=== PATIENT | female | born 1985 | race Caucasian/White ===

== ENCOUNTER 2022-10-12 15:51 | Outpatient (CLI) | payer OTHER, SELFPAY ==
[2022-10-12 16:55] LABS: SARS-CoV-2 RNA PCR Positive (Negative)
== END 2022-10-12 15:52 | disposition home or self-care (01) ==
LOC: CHSLAB 15:58
PROVIDERS: PCP Nurse Practitioner Family; Visit Provider Nurse Practitioner Family
DX: U07.1 COVID-19 (principal)
CPT/HCPCS: U0003; U0005